=== PATIENT | female | born 1965 | race Caucasian/White ===

== ENCOUNTER 2016-07-09 19:21 | Emergency (ER) | payer BC ==
[~2016-07-09] VITALS: Ht 165.1 cm; Wt 84.8 kg
[2016-07-09] MEDS ORDERED: PERCOCET 5/31 TABLET PO (21:55)
[2016-07-09] MEDS ORDERED: KEFLEX500 MG PO (21:55)
[2016-07-09 22:38] VITALS: BP 151/87
== END 2016-07-09 22:41 | disposition home or self-care (01) ==
LOC: EME 19:21
PROC: 0HQHXZZ Repair Right Upper Leg Skin, External Approach (ICD-10-PCS; principal; 2016-07-09)
DX: S81.011A Laceration without foreign body, right knee, initial encounter (principal); S86.821A Laceration of other muscle(s) and tendon(s) at lower leg level, right leg, initial encounter; W01.198A Fall on same level from slipping, tripping and stumbling with subsequent striking against other object, initial encounter; Y93.01 Activity, walking, marching and hiking; Y92.828 Other wilderness area as the place of occurrence of the external cause
CPT/HCPCS: 73564; 99281; 99285